=== PATIENT | female | born 1970 | race Caucasian/White ===

== ENCOUNTER → 2016-08-22 | Outpatient (CLI) | payer MEDICAID ==
[~2016-08-22] MED LIST: AMOXIL500 M1 PO; AMOXIL500 MG PO; AUGMENTIN 875-1 EACH PO; AZITHROMYCIN250 MG PO; BACTRIM DS 8001 TAB PO; BENZONATATE100 MG PO; CIPRO 500MG TA500 MG PO; COLACE100 MG PO; DULCOLAX10 M1 RC; KEFLEX 500MG.500 MG PO; MEDROL 4MG. DOSE4 MG PO; MIRALAX(PO17 GM/1 PA PO; OXYCODONE AND A1 TA5 PO; TYLENOL W/CODEI1 TAB PO; ULTRAM 50 MG TA50 MG PO; [UNRECOGNIZED DRUG - OTHER] PO
== END ==
LOC: RT 16:10
DX: R00.2 Palpitations (principal)

== ENCOUNTER → 2017-05-30 | Outpatient (CLI) | payer MEDICAID ==
--- NOTE | 2017-06-02 15:17 | RADIOLOGY REPORT PS360 ---
DIG MAMM-SCREEN PATIENCE W/CAD CAD Screening COMPARISON: Digital mammograms 08/21/2010 and 09/04/2011 INDICATION: There is a history of breast cancer patient's aunt diagnosed after menopause. TECHNIQUE: Standard CC and MLO images were obtained. R2 CAD reviewed. FINDINGS: The breasts are composed primarily of fat with minimal fiber glandular densities in the subareolar regions bilaterally. There are stable small 9 appearing nodular densities in each breast. There are few scattered benign-appearing calcifications in each breast. There is no suspicious lesion and there are no suspicious microcalcifications. IMPRESSION: Fatty type breast parenchyma with no suspicious lesion seen recommend yearly follow-up BI-RADS CATEGORY: 2_Benign RECOMMENDED FOLLOWUP: 12M 12 MONTH FOLLOW-UP (A letter has been sent to the patient regarding results of the study.)
== END ==
LOC: RAD 16:30
DX: Z12.31 Encounter for screening mammogram for malignant neoplasm of breast (principal)
CPT/HCPCS: G0202